=== PATIENT | male | born 1985 ===

== ENCOUNTER → 2023-10-03 | Outpatient (REF) | payer BC ==
[2023-10-03 10:57] LABS: SEMEN APPEARANCE OPAQUE (OPAQUE); SEMEN VISCOSITY LIQUID (LIQUID); SEMEN VOLUME 6.4 ml (2.0-5.0); WBC CONCENTRATION <=1 M/ml (<=1 M/ml)
[2023-10-03 10:58] LABS: SPERM CONCENTRATION 5.5 M/ml (>=15.0)
== END ==
LOC: M SFHCWAGY 10:44
PROVIDERS: ATTEND Advanced Practice Midwife
DX: Z31.41 Encounter for fertility testing (principal); N46.9 Male infertility, unspecified